=== PATIENT | female | born 1955 | race Caucasian/White ===

== ENCOUNTER 2024-01-04 18:29 | Inpatient (IN) | payer MEDICARE, OTHER ==
[~2024-01-04] VITALS: Ht 160 cm; Wt 69.9 kg
[2024-01-04] MEDS ORDERED: LURA80TA PO (18:45)
[2024-01-04] MEDS ORDERED: MEMA10TA PO (18:45)
[2024-01-04] MEDS ORDERED: [UNRECOGNIZED DRUG - OTHER] PO (18:45)
[2024-01-04] MEDS ORDERED: TRAZ-257 PO (18:45)
[2024-01-04] MEDS ORDERED: DIVA250T4 PO (18:45)
[2024-01-04] MEDS ORDERED: PALI156D IM (18:45)
[2024-01-04] MEDS ORDERED: OMEP20TA5 PO (18:45)
[2024-01-04] MEDS ORDERED: [UNRECOGNIZED DRUG - OTHER] PO (18:45)
[2024-01-04] MEDS ORDERED: ATOR20TA PO (18:45)
[2024-01-04] MEDS ORDERED: SERT50TA PO (18:45)
[2024-01-04] MEDS ORDERED: HYDR12.55 PO (18:45)
[2024-01-04] MEDS ORDERED: OXYB10TA4 PO (18:45)
[2024-01-04] MEDS ORDERED: DULO60CA45 PO (18:45)
[2024-01-04] MEDS ORDERED: IBUP-1955 PO (18:45)
[2024-01-04] MEDS ORDERED: PANTOPRAZOLE SODIUM 40 MG TABLET.DR PO ONE (18:53)
[2024-01-04] MEDS ORDERED: MISCELLANEOUS MED XX ONE (19:00)
[2024-01-04] MEDS: PANTOPRAZOLE SODIUM 40 MG TABLET.DR PO ONE (19:10)
[2024-01-04] MEDS: NICOTINE 14 MG/24HR PATCH TD ONE (19:10)
[2024-01-04] MEDS ORDERED: LORAZEPAM 0.5 MG TABLET PO PRN (23:45)
[2024-01-04] MEDS ORDERED: MAGNESIUM HYDROXIDE 30 ML LIQUID UDC PO PRN (23:45)
[2024-01-05] VITALS: BP 143/78; TEMP 98; O2SAT 95
[2024-01-05] MEDS: BLOOD SUGAR DIAGNOSTIC 1 EACH STRIP VI ONE (00:26)
[2024-01-05] MEDS: TEMAZEPAM 7.5 MG CAPSULE PO PRN (00:48)
[2024-01-05] MEDS: ACETAMINOPHEN 325 MG TABLET PO PRN (00:48)
[2024-01-05 08:24] VITALS: BP 120/69; TEMP 98; O2SAT 92
[2024-01-05] MEDS ORDERED: HOME MED MISCELLANEOUS XX SCH ×2 (11:00)
[2024-01-05] MEDS ORDERED: PROP10TA68 PO (12:16)
[2024-01-05] MEDS ORDERED: OXYB5TAB16 PO (12:16)
[2024-01-05] MEDS: HYDROCODONE/APAP 5-325MG TABLET PO PRN (12:45)
[2024-01-05] MEDS ORDERED: ALEN70TA80 PO (12:45)
[2024-01-05] MEDS: NICOTINE 21 MG/24HR PATCH TD SCH (12:45)
[2024-01-05] MEDS: DIVALPROEX 250 MG TABLET.DR PO SCH ×2 (12:46→20:56)
[2024-01-05] MEDS: risperiDONE 1 MG TABLET PO SCH (12:47)
[2024-01-05 15:09] VITALS: BP 138/68; TEMP 98; O2SAT 92
[2024-01-05] MEDS: OXYBUTYNIN CHLORIDE 5 MG TABLET PO SCH (17:09)
[2024-01-05 20:00] VITALS: BP 139/67; TEMP 97.5; O2SAT 95
[2024-01-05] MEDS: ATORVASTATIN 20 MG TABLET PO SCH (20:56)
[2024-01-06] MEDS: TEMAZEPAM 7.5 MG CAPSULE PO PRN (01:00)
[2024-01-06] MEDS: ALENDRONATE SODIUM 70 MG TABLET PO SCH (06:18)
[2024-01-06] MEDS: PANTOPRAZOLE SODIUM 40 MG TABLET.DR PO SCH (06:35)
[2024-01-06 08:23] VITALS: BP 133/66; TEMP 98.2; O2SAT 98
[2024-01-06] MEDS: HYDROCHLOROTHIAZIDE 12.5 MG CAPSULE PO SCH (08:59)
[2024-01-06] MEDS: MAG HYDROX/AL HYDROX/SIMETH 30 ML LIQUID UDC PO PRN (10:55)
[2024-01-06] MEDS: LORAZEPAM 0.5 MG TABLET PO PRN (13:42)
[2024-01-06 16:15] VITALS: BP 122/71; TEMP 98; O2SAT 98
[2024-01-06 20:18] VITALS: BP 104/53; TEMP 98; O2SAT 98
[2024-01-06] MEDS: IBUPROFEN 600 MG TABLET PO PRN (20:36)
[2024-01-07 09:00] VITALS: BP 128/70; TEMP 98.1; O2SAT 98
[2024-01-07 16:32] VITALS: BP 127/68; TEMP 98.1; O2SAT 98
[2024-01-07 20:05] VITALS: BP 118/66; TEMP 97.9; O2SAT 96
[2024-01-08 07:23] LABS: CREATININE 0.7 mg/dL (0.6-1.3); POTASSIUM 3.9 mmol/L (3.5-5.1)
[2024-01-08 08:06] VITALS: BP 124/69; TEMP 98.4; O2SAT 98
[2024-01-08] MEDS: MUPIROCIN 2% OINT 22 GM TUBE NS SCH (09:10)
[2024-01-08 16:15] VITALS: BP 155/69; TEMP 97.7; O2SAT 98
[2024-01-08 20:16] VITALS: BP 120/64; TEMP 98.1; O2SAT 96
[2024-01-09 07:33] VITALS: BP 96/56; TEMP 98; O2SAT 94
[2024-01-09 15:39] VITALS: BP 100/55; TEMP 98; O2SAT 94
[2024-01-09 20:11] VITALS: BP 101/56; TEMP 98.1; O2SAT 94
[2024-01-10 08:26] VITALS: BP 135/64; TEMP 98; O2SAT 98
[2024-01-10 08:47] LABS: BASOPHILS % (AUTO) 0.7 % (0.0-2.0); EOSINOPHILS # (AUTO) 0.1 K/uL (0.0-0.7); EOSINOPHILS % (AUTO) 1.4 % (0.0-7.0); HEMATOCRIT 36.2 % (31.2-41.9); HEMOGLOBIN 12.1 g/dL (10.9-14.3); LYMPHOCYTES # (AUTO) 1.1 K/uL (0.8-4.8); LYMPHOCYTES % (AUTO) 22.6 % (20.5-51.5); MEAN CORPUSCULAR HEMOGLOBIN 28.4 uug (24.7-32.8); MEAN CORPUSCULAR HGB CONC 33 g/dL (32.3-35.6); MEAN CORPUSCULAR VOLUME 85.2 fL (75.5-95.3); MONOCYTES # (AUTO) 0.6 K/uL (0.1-1.30); MONOCYTES % (AUTO) 11.3 % (0.0-11.0); NEUTROPHILS # (AUTO) 3.1 K/uL (1.8-8.9); PLATELET COUNT (AUTO) 306 K/uL (179-408); RED BLOOD CELL COUNT(AUTO) 4.25 MIL/uL (3.63-4.92); RED CELL DISTRIBUTION WIDTH 18.4 % (12.3-17.7); WHITE BLOOD COUNT (AUTO) 4.9 K/uL (3.8-11.8)
[2024-01-10 08:51] LABS: DIFFERENTIAL COMMENT 1
[2024-01-10 09:01] LABS: CALCIUM 8.6 mg/dL (8.5-10.1); CREATININE 0.5 mg/dL (0.6-1.3); MAGNESIUM 1.8 mg/dL (1.8-2.4); PHOSPHOROUS 4.3 mg/dL (2.5-4.9); POTASSIUM 3.4 mmol/L (3.5-5.1)
[2024-01-10 15:21] VITALS: BP 159/68; TEMP 98; O2SAT 99
[2024-01-10 20:00] VITALS: BP 140/80; TEMP 97.7; O2SAT 94
[2024-01-11 08:47] VITALS: BP 122/67; TEMP 98.2; O2SAT 91
[2024-01-11 15:50] VITALS: BP 118/69; TEMP 98; O2SAT 96
[2024-01-11 20:00] VITALS: BP 127/71; TEMP 97.3; O2SAT 96
[2024-01-12 07:48] VITALS: BP 98/56; TEMP 98; O2SAT 90
[2024-01-12 15:40] VITALS: BP 106/60; TEMP 98; O2SAT 96
[2024-01-12 20:00] VITALS: BP 125/69; TEMP 97.6; O2SAT 94
[2024-01-13 07:41] VITALS: BP 114/67; TEMP 98.2; O2SAT 98
[2024-01-13 08:06] LABS: CALCIUM 9.1 mg/dL (8.5-10.1); CREATININE 0.5 mg/dL (0.6-1.3); POTASSIUM 3.5 mmol/L (3.5-5.1)
[2024-01-13 16:49] VITALS: BP 139/82; TEMP 98.2; O2SAT 99
[2024-01-13 20:00] VITALS: BP 120/70; TEMP 97.9; O2SAT 97
[2024-01-14 08:13] LABS: CALCIUM 8.5 mg/dL (8.5-10.1); CREATININE 0.5 mg/dL (0.6-1.3); POTASSIUM 3.8 mmol/L (3.5-5.1)
[2024-01-14 08:31] VITALS: BP 135/68; TEMP 98; O2SAT 99
[2024-01-14 16:57] VITALS: BP 92/56; TEMP 98.1; O2SAT 98
[2024-01-14 19:51] VITALS: BP 117/60; TEMP 98.2; O2SAT 98
[2024-01-14] MEDS: risperiDONE 1 MG TABLET PO SCH (20:33)
[2024-01-15 07:52] VITALS: BP 148/81; TEMP 98.1; O2SAT 98
[2024-01-15 16:34] VITALS: BP 132/70; TEMP 98; O2SAT 98
[2024-01-15 20:03] VITALS: BP 136/68; TEMP 98.1; O2SAT 96
[2024-01-16 07:46] VITALS: BP 110/64; TEMP 98; O2SAT 96
[2024-01-16 15:52] VITALS: BP 128/76; TEMP 98; O2SAT 94
[2024-01-16] MEDS: ENSURE WITH FIBER 237 ML LIQUID (CHOCOLATE) PO SCH (17:41)
[2024-01-16 19:49] VITALS: BP 129/69; TEMP 98.1; O2SAT 94
[2024-01-17 07:30] VITALS: BP 117/66; TEMP 98; O2SAT 96
[2024-01-17] MEDS: [UNRECOGNIZED DRUG - OTHER] IM ONE (14:40)
[2024-01-17 15:26] VITALS: BP 150/63; TEMP 98.2; O2SAT 98
[2024-01-17 20:00] VITALS: BP 117/60; TEMP 98.9; O2SAT 94
[2024-01-18 07:58] VITALS: BP 133/74; TEMP 98; O2SAT 98
== END 2024-01-18 14:30 | disposition home or self-care (01) | DRG 885 ==
LOC: EDSEX 18:31 → ER 18:31 → GPS 19:22
PROVIDERS: ADMIT Psychiatry & Neurology Psychosomatic Medicine; ATTEND Nurse Practitioner Acute Care
DX: F25.1 Schizoaffective disorder, depressive type (principal); E87.1 Hypo-osmolality and hyponatremia; G89.29 Other chronic pain; F17.210 Nicotine dependence, cigarettes, uncomplicated; Z91.52 Personal history of nonsuicidal self-harm; Z91.51 Personal history of suicidal behavior; F12.90 Cannabis use, unspecified, uncomplicated; Z96.652 Presence of left artificial knee joint; E78.5 Hyperlipidemia, unspecified; N32.81 Overactive bladder; I10 Essential (primary) hypertension; F41.9 Anxiety disorder, unspecified; M54.42 Lumbago with sciatica, left side; M54.41 Lumbago with sciatica, right side; M81.0 Age-related osteoporosis without current pathological fracture; Z88.1 Allergy status to other antibiotic agents
CPT/HCPCS: 36415; 80164; 83735; 84100; 85025; J3490; J8499